=== PATIENT | female | born 1985 | race Two or more races ===

== ENCOUNTER 2025-01-08 16:29 | Inpatient (IN) | payer MEDICAID, SELFPAY ==
[2025-01-08] VITALS (52 sets, daily range): BP systolic 105–141; BP diastolic 54–90; PULSE 83–116; RESP 18–100; TEMP 36.8–38; O2SAT 71–100; BMI 44.4
[2025-01-08] MEDS: RINGERS LACTATED 1000 ML 1,000 ML 100 ML IV ×3 (16:40→18:35)
[2025-01-08 17:14] LABS: Basophils # (Auto) 0.0 Thou/mm3 (0.0-0.2); Basophils % (Auto) 0 % (0-2.5); Eosinophils # (Auto) 0.3 Thou/mm3 (0.0-0.5); Eosinophils % (Auto) 2 % (0-10); Hematocrit 37.2 % (36.0-46.0); Hemoglobin 12.1 g/dL (12.0-16.0); Immature Granulocytes Auto 0.06 Thou/mm3 (0.00-0.00); Lymphocytes # (Auto) 0.9 Thou/mm3 (1.0-4.8); Lymphocytes % (Auto) 9 % (10-50); Mean Corpuscular HGB Conc 32.5 g/dl (31.0-37.0); Mean Corpuscular Hemoglobin 27.6 pg (25.0-35.0); Mean Corpuscular Volume 85 fL (80-100); Monocytes # (Auto) 1.0 Thou/mm3 (0.0-0.8); Monocytes % (Auto) 10 % (0-12); Neutrophils # (Auto) 8.1 Thou/mm3 (1.8-7.7); Neutrophils % (Auto) 78 % (37-80); Nucleated Red Blood Cell # 0.00 Thou/mm3 (0.00-0.00); Nucleated Red Blood Cell % 0 /100 WBC (0); Platelet Count 309 Thou/mm3 (140-440); RDW Standard Deviation 44.2 fL (36.4-46.3); Red Blood Count 4.38 Miln/mm3 (4.00-5.20); White Blood Count 10.5 Thou/mm3 (3.6-11.0)
[2025-01-08 18:11] LABS: Syphilis Nonreactive (Nonreactive)
[2025-01-08] MEDS: BENZO/LANO/ALOE (Dermoplast) 60 GM CAN 1 SPRAY TOP (19:39)
[2025-01-08] MEDS: OXYTOCIN in NS 20 units 20 UNIT/1,000 ML BAG 125 UNIT IV (19:40)
[2025-01-08] MEDS: METHYLERGONOVINE INJ 0.2 MG/ML VIAL IM (19:45)
--- NOTE | 2025-01-08 20:30 | PD.LDDELS ---
Data ([facility]) Data Hx Section: No : 8 Term: 5 : 0 Livin Abortions: Spontaneous & Theraputic: 2 Delivery Data ([facility]) Labor Data Initiation of labor: Spontaneous Induction/Augmentation Agent: None ROM date: 01/08/25 ROM time: 19:32 Amniotic membrane rupture type: Artificial Amniotic fluid description: Clear Delivery Data Onset of labor date: 01/08/25 Onset of labor time: 11:00 Complete dilation date: 01/08/25 Complete dilation time: 19:37 delivery date: 01/08/25 delivery time: 19:39 Placenta delivery date: 01/08/25 Stage 1 total time: Labor - Stage 1 Duration 8 hours and 37 minutes Delivered by: Madelin Beavers Delivery nurse: Kavon Ferreira RN Neworn nurse: Brandy Shepard RN Financial Accounting Manager at delivery: No Support person(s) at delivery: fob Delivery Method Delivery method: Normal Vaginal Delivery Presentation: Vertex Anesthesia Type Anesthesia Type: Epidural Placenta Placenta delivery description: Spontaneous Cord blood sent to lab: Yes cord blood collection: Cord Blood Type Episiotomy Episiotomy description: None EBL Estimated blood loss (ml): 200 Umbilical Cord cord description: 3 Vessels Additional Procedures Valerie is a 39yo [id number] s/p uncomplicated at 40&3 after presenting in active labor, delivering at 1939 on 01/08/2025. On presentation, SCE was 6cm. She received an epidural and progressed quickly to 9cm at which point AROM was performed (clear), and then one contraction later she was C/C/0 with strong urge to push. With good maternal pushing efforts, infant's head delivered OA and restituted BABATUNDE. Left anterior shoulder delivered easily followed by posterior shoulder and corpus. Infant had spontaneous cry and was vigorous. Apgars 8/9. Infant placed on maternal abdomen where nose/mouth were suctioned and dried/stimulated. After approximately 1 minute, cord was clamped x2 and cut by FOB. Cord blood collected for typing. With fundal massage and cord traction, placenta delivered spontaneously and intact with 3 vessel centrally inserted cord. Bimanual massage performed and IV pitocin given per protocol with fundus then firm at u-2cm and hemostasis noted. Inspection of perineum and vagina revealed small 2nd degree midline perineal laceration which was repaired in routine fashion with 3-0 vicryl- total reapproximation and hemostasis achieved. Small trickle of blood, so sweep just within cervix/BELLA performed which retrieved a small amount of clot. 0.2mg IM methergine given with observed hemostasis after. All counts correct x2. Mom and infant were doing well when I left the room. Madelin Beavers MD Complications Complications: none [facility] Data ([facility]) [facility] Data 's gender: Female weight (gms): 3875 g Weight (pounds): 8 lbs and 8.7 ozs 1 minute: 8 5 minutes: 9
[2025-01-08] MEDS: ACETAMINOPHEN IVPB 1,000 MG/100 ML VIAL 250 MG IV (20:32)
--- NOTE | 2025-01-08 20:36 | PD.LDHP ---
Documentation for date of: 01/08/25 OB Labor/Induct. HPI History of Present Illness Chief complaint: painful regular ctx : 8 Para: 5 Term pregnancies: 5 pregnancies: 0 Living children: 5 History of Abortions: Spontaneous and Elective: 2 History of Vaginal deliveries: 5 History of sections: No History of : No Date of last menstrual period: 03/31/24 ABILIO: 01/05/25 Gestational Age (weeks): 40 Gestational Age (days): 3 Gestational age based on last menstrual period: 40 History of present illness: Patient presents for regular, painful ctx. No LOF. No vaginal bleeding. Normal movement. No fevers/chills. History of Present Adequate Care: Yes Narrative: Good PNC with Dr. Royal's office Hx of x5 at term, uncomplicated. Proven to 9lb. First 2003, last was 2021. AMA age 39, ASA 81mg PO QD Normal glucola NIPT negative Current BMI 44.5 Labs Maternal Blood Type: A Pos Labs: Positive: Rubella Titre, Negative: RPR, Hepatitis B, HIV, Chlamydia, Gonorrhea and Group Beta Strep and Unknown: Herpes Type 1, Herpes Type 2 and Covid-19 Narrative: NIPT negative 1hr glucola <90 Review of Systems Review of Systems Narrative Review of Systems: Review of Systems Systems Reviewed: All systems reviewed, normal except as documented Constitutional Constitutional: Denies body ache(s), Denies chills, Denies fever(s) and Denies headache(s) ENT Ears, Nose, Mouth, and Throat: Denies headache(s) and Denies vertigo Cardiovascular Cardiovascular: Denies chest pain, Denies palpitations, Denies dyspnea and Denies syncope Respiratory Respiratory: Denies cough, Denies dyspnea Gastrointestinal Gastrointestinal: Denies nausea and Denies vomiting Neurologic Neurologic: Denies convulsions, Denies headache(s), Denies other visual disturbances, Denies syncope and Denies vertigo Past Medical History Family History OTHER FAMILY HX: Family hx of T2DM Surgical History SURGICAL: Negative Section OTHER SURGICAL HX: Suction D&C x1 Social History SOCIAL: , good support. No tobacco/ETOH/illicit drugs Past Medical History Comments PMH COMMENT: Current BMI 44.5 Meds Home Medications and Allergies Home Medications ?Medication ?Instructions ?Recorded ?Confirmed ?Type vitamins with calcium 1 tab PO QDAY 01/08/25 01/08/25 History no.72-iron 27 mg-folic acid 1 mg tablet ( Plus (calcium carbonate)) Allergies Allergy/AdvReac Type Severity Reaction Status Date / Time No Known Allergies Allergy Verified 01/08/25 16:41 OB Exam Physical Exam Vital signs: Temp Pulse Resp BP Pulse Ox O2 Del Method 100.4 F 97 18 115/65 100 Room Air 01/08/25 20:20 01/08/25 20:35 01/08/25 16:37 01/08/25 20:35 01/08/25 19:50 01/08/25 16:37 Narrative: General: well developed, well nourished, no acute distress, conversant Cardiac: normal heart rate Lungs: breathing without distress Abdomen: soft, gravid, non-tender, no rebound or guarding Extremities: trace edema BLE Detailed Labor and Delivery Exam Dilation (cm): 6 Effacement (%): 50 Cervix position: mid station: -3 Consistency: soft Presentation: Vertex Membranes: intact Baseline heart rate: 145 monitor accelerations: 15x15 monitor decelerations: Variable terminal worker variability: Moderate (11-25) Contraction frequency (min): q3-4min OB Results Labs 01/09/25 06:15 Labs: Short CBC 01/08/25 Range/Units 16:55 WBC 10.5 (3.6-11.0) Thou/mm3 Hgb 12.1 (12.0-16.0) g/dL Hct 37.2 (36.0-46.0) % Plt Count 309 (140-440) Thou/mm3 OB Assessment & Plan Assessment and Plan (1) Active labor at term: Status: Acute Assessment and plan: Valerie is a 39yo with SIUP at 40&3wk presenting in active labor. Regular/painful contractions, SCE: 6/50/-3. Vitals wnl, benign exam. FHRT Cat II for variable decels, mod delmer, +accels. PMhx/ complicated by: Good PNC with Dr. Royal's office (available records reviewed) Hx of x5 at term, uncomplicated. Proven to 9lb. First 2003, last was 2022. AMA age 39, ASA 81mg PO QD Normal glucola NIPT negative Current BMI 44.5 Plan: -Admit to L&D -Establish IV, routine labs -CEFM -Clear liquid diet -Verification Rep/consent re: -GBS status: negative -Anticipate -Safe to proceed (2) Grand multipara in labor: Status: Acute (3) Obesity affecting : Status: Acute (3) Obesity affecting Qualifiers: Trimester: third trimester Obesity type affecting : unspecified obesity Qualified Code(s): O99.213 - Obesity complicating , third trimester
[2025-01-08 23:53] LABS: Amphetamine/Metham Scrn,Ur OB Negative (Negative); Benzoylecgonine Screen, Ur OB Negative (Negative); Opiate Screen,Urine OB Negative (Negative); THC Screen,Urine OB Negative (Negative)
[2025-01-09 00:47] VITALS: BP 98/61; PULSE 90; RESP 18; TEMP 36.9; O2SAT 96
[2025-01-09] MEDS: HYDROcodone/APAP 5/325 TABLET 1 TAB PO (04:33)
[2025-01-09 04:45] VITALS: BP 98/65; PULSE 62; RESP 18; TEMP 36.6; O2SAT 96
[2025-01-09 06:59] LABS: Basophils # (Auto) 0.0 Thou/mm3 (0.0-0.2); Basophils % (Auto) 0 % (0-2.5); Eosinophils # (Auto) 0.2 Thou/mm3 (0.0-0.5); Eosinophils % (Auto) 2 % (0-10); Hematocrit 33.1 % (36.0-46.0); Hemoglobin 10.9 g/dL (12.0-16.0); Immature Granulocytes Auto 0.06 Thou/mm3 (0.00-0.00); Lymphocytes # (Auto) 1.2 Thou/mm3 (1.0-4.8); Lymphocytes % (Auto) 13 % (10-50); Mean Corpuscular HGB Conc 32.9 g/dl (31.0-37.0); Mean Corpuscular Hemoglobin 28.4 pg (25.0-35.0); Mean Corpuscular Volume 86 fL (80-100); Monocytes # (Auto) 1.2 Thou/mm3 (0.0-0.8); Monocytes % (Auto) 12 % (0-12); Neutrophils # (Auto) 7.2 Thou/mm3 (1.8-7.7); Neutrophils % (Auto) 73 % (37-80); Nucleated Red Blood Cell # 0.00 Thou/mm3 (0.00-0.00); Nucleated Red Blood Cell % 0 /100 WBC (0); Platelet Count 265 Thou/mm3 (140-440); RDW Standard Deviation 45.1 fL (36.4-46.3); Red Blood Count 3.84 Miln/mm3 (4.00-5.20); White Blood Count 9.9 Thou/mm3 (3.6-11.0)
[2025-01-09 08:00] VITALS: BP 100/67; PULSE 73; RESP 18; TEMP 36.6; O2SAT 96
[2025-01-09] MEDS: IBUPROFEN TAB 400 MG TABLET 800 MG PO ×2 (08:42→18:27)
[2025-01-09] MEDS: DOCUSATE SOD 100 MG CAPSULE PO (08:42)
[2025-01-09] MEDS: PRENATAL VITAMIN/FE FUM/FA TABLET 1 TAB PO (08:42)
--- NOTE | 2025-01-09 10:32 | PC.CC ---
MODULAR SET CREW MEMBER, Rosa, met with patient [id number] to do initial assessment due to being late to care at 20 weeks of gestation. CUSTOMS AND BORDER PROTECTION INSPECTOR introduced herself, role in the agency, reason for visit, and discussed limits of confidentiality. Patient appeared alert and oriented to self, time, place, and situation. Patient appears stated age. Patient made good eye contact. Patient?s attitude appeared pleasant and cooperative. Patient?s behavior appeared ordinary. Patient?s mood appears ordinary. No signs of delusions or hallucinations. This is 39-year-old, monolingual, single, female who presented to the hospital to deliver her daughter. Patient confirmed her address and phone number. Patient resides in a home with her , Gavino and 5 children (ages: 21 y/o, 15 y/o, 12 y/o, 5 y/o, and 3 y/o). Patient reported being independent with all ADLs, no DME use. Prior to admission, patient reported being unemployed. She financially support herself and children with her 's income and WIC. Patient denied any history or current issues with CWS, substance use, or domestic violence. Patient denies any history or current mental health illnesses. Patient reported that with her last two pregnancies, patient believes that she might have suffered from Post Depression; however, it was never diagnosed. Patient reported that her symptoms consisted of feeling sad and being tearful. She denies receiving any outpatient mental health services. Patient denies any history of suicide attempts, 5150 holds. Patient denied any HI, SI. Patient reported that her mother, Maryam will be there to assist her. Patient reported that she found out about being early on her . However, she did not have have medical insurance and had to wait a few months to obtain Med[facility]. Patient reported that she attempted to pay for a few sessions out of pocket; however, it was a financial stressor. Once Medi-Mohamud was obtained, patient went to all her OBGYN appointments. SW provided psychoeducation regarding baby blues and Post- Depression, as well as counseling groups at [facility]. SW provided community resources: Warm Line and Crisis Line.
[2025-01-09 12:00] VITALS: BP 96/65; PULSE 66; RESP 17; TEMP 36.7; O2SAT 97
[2025-01-09 16:00] VITALS: BP 100/70; PULSE 70; RESP 17; TEMP 36.7; O2SAT 97
--- NOTE | 2025-01-09 16:00 | PD.LDDS ---
DS: Providers Provider Date of admission: 01/08/25 19:39 Primary care physician: Physician No Primary/Family Admitting Provider: Madelin Beavers MD Attending Provider on Admission: Madelin Beavers MD Consults: 01/08/25 20:28 Referral Routine Comment: Attending Provider on DC: Madelin Beavers MD Discharging Provider: Madelin Beavers MD DS: Diagnosis Discharge Diagnosis (1) Grand multipara in labor: Status: Acute (2) care following vaginal delivery: Status: Acute (3) Active labor at term: Status: Acute Problem List Completed Was Problem List Reviewed/Reconciled?: Yes Summary/Hosp Course Brief History: Valerie is a 39yo [id number] s/p uncomplicated at 40wk after presenting in active labor, delivering on 01/08. She has had an uncomplicated course, meeting all milestones and feels ready for discharge home. She is ambulating without lightheadedness, tolerating regular diet no n/v, spontaneously voiding without issue. She has no chest pain or shortness of breath. No fevers or chills. Minimal, appropriate discomfort. Vitals normal, benign exam. Hemodynamically stable with no evidence of infection. PP Hgb 10.9. Peripartum Data Delivery Method: Normal Vaginal Delivery Episiotomy Description: None Status at Discharge Functional status at discharge: independent ambulation Overall status at discharge: patient is back to baseline Time Spent with Patient Time attestation: Total time spent providing and/or coordinating discharge services: Exam Vital Signs Temp Pulse Resp BP Pulse Ox O2 Del Method 98.0 F 66 17 96/65 97 Room Air 01/09/25 12:00 01/09/25 12:00 01/09/25 12:00 01/09/25 12:00 01/09/25 12:00 01/09/25 12:00 Narrative Exam General: well developed, well nourished, no acute distress, conversant Cardiac: normal heart rate Lungs: breathing without distress Abdomen: soft, post-gravid, non-tender, no rebound or guarding, Fundus firm at u-3cm. Extremities: no pain with palpation of calves, trace edema of BLE Discharge Plan Plan Patient Disposition: HOME (Self Care) Patient condition on transfer: Stable Prescriptions/Referrals Prescriptions/Med Rec: New docusate sodium 100 mg Capsule 100 mg PO BID 10 Days Qty: 20 0RF ibuprofen 600 mg tablet 600 mg PO Q6H PRN (Reason: See Comments) 10 Days Qty: 20 0RF Continued Plus (calcium carb) 27 mg iron- 1 mg tablet 1 tab PO QDAY Patient Comments: Take 1 tablet by mouth once a day Referrals: No Primary/Family,Physician [Primary Care Provider] - Patient/Caregiver Discharge Instructions Discharge Activity: activity as tolerated and other Other Discharge Activity Instructions:: vaginal rest and no heavy lifting more than 10 pounds for 6 weeks Other Discharge Diet Instructions: regular Education Materials: After a Vaginal Print Language: Persian Activity Restrictions/Additional Instructions: follow up with Dr. Royal's office in 2 to 4 weeks for visit, call to schedule Stand Alone Forms: [employer] Info., Patient Portal Info Letter Discharge Order Discharge Orders: Discharge (Routine); Ordered 01/09/25 Ordered By: Madelin Beavers Planned Discharge Date 01/09/25
[2025-01-09 19:48] VITALS: BP 98/63; PULSE 67; RESP 16; TEMP 36.6; O2SAT 96
== END 2025-01-09 20:29 | disposition home or self-care (01) | DRG 560 ==
LOC: S4NX 01-11 05:44 → S4SX 01-11 05:44
PROVIDERS: Admitting Provider Obstetrics & Gynecology; Visit Provider Obstetrics & Gynecology
DX: O48.0 Post-term pregnancy (principal); O76 Abnormality in fetal heart rate and rhythm complicating labor and delivery; O99.214 Obesity complicating childbirth; Z37.0 Single live birth; Z3A.40 40 weeks gestation of pregnancy; O70.1 Second degree perineal laceration during delivery
CPT/HCPCS: 36415; 59025; 80307; 85025; 86780; 86850; 86900; 86901; J0131; J2210; J2590; J2795; J3010; J7120; A9270

== ENCOUNTER 2025-04-04 16:59 | Emergency (ER) | payer MEDICAID, SELFPAY ==
[2025-04-04 17:30] VITALS: BP 119/79; PULSE 109; RESP 19; TEMP 38.1; O2SAT 95; BMI 29.9
--- NOTE | 2025-04-04 17:53 | PD.EDRME ---
Rapid Medical Screening Exam RME Arrival date/time: 04/04/25 16:59 This is a 39-year-old female that comes into the emergency room with complaints of back pain fever chills. Patient states she is currently . Patient delivered baby in December. Patient states she is currently breast-feeding. Patient is also complaining of abdominal pain. Patient does not think she is . I have greeted and performed a focused initial assessment of this patient. Initial appropriate labs ordered at this time. A comprehensive ED assessment and evaluation of the patient and analysis of all test and completion of medical decision making process will be conducted by additional ED provider. Chief Complaint: Back Pain/Injury Time Seen by Provider: 04/04/25 17:28 Vital signs: Vital Signs Temperature 100.5 F H 04/04/25 17:30 Pulse Rate 109 H 04/04/25 17:30 Respiratory Rate 19 04/04/25 17:30 Blood Pressure 119/79 04/04/25 17:30 Pulse Oximetry (%) 95 04/04/25 17:30 Oxygen Delivery Method Room Air 04/04/25 17:30 Exam: Alert and oriented, breathing unlabored, diffuse lower back pain Clinical Impression: Back pain
[2025-04-04 18:14] VITALS: TEMP 38.1
[2025-04-04] MEDS: ACETAMINOPHEN 500 MG TABLET 1000 MG PO (18:14)
[2025-04-04 18:19] LABS: Collection Type, Urine Voided
[2025-04-04 18:30] LABS: Bilirubin,Urine 2+ (Negative); Blood,Urine 1+ (Negative); Clarity,Urine Clear (Clear/Hazy); Color,Urine Drk-Yellow (Lt Yel-Yel); Glucose, Urine Negative (Negative); Ketones,Urine Negative (Negative); Leukocyte Esterase,Urine Positive (Negative); Nitrite,Urine Positive (Negative); PH,Urine 6.0 (5.0-7.0); Protein,Urine Trace (Neg - Trace); RBC,Urine 12 /hpf (0-3); Specific Gravity,Urine 1.018 (1.001-1.035); Squamous Epithelial Cell,Urine 5 /hpf (0-5); Urobilinogen,Urine 4.0 mg/dL (0.0-1.0); WBC,Urine 33 /hpf (0-5)
[2025-04-04 18:38] LABS: Culture Indicated,Urine Yes
[2025-04-04 18:41] LABS: HCG Qualitative,Urine Negative
[2025-04-04 18:55] LABS: Basophils # (Auto) 0.0 Thou/mm3 (0.0-0.2); Basophils % (Auto) 0 % (0-2.5); Eosinophils # (Auto) 0.0 Thou/mm3 (0.0-0.5); Eosinophils % (Auto) 0 % (0-10); Hematocrit 37.8 % (36.0-46.0); Hemoglobin 13.0 g/dL (12.0-16.0); Immature Granulocytes Auto 0.04 Thou/mm3 (0.00-0.00); Lymphocytes # (Auto) 1.2 Thou/mm3 (1.0-4.8); Lymphocytes % (Auto) 10 % (10-50); Mean Corpuscular HGB Conc 34.4 g/dl (31.0-37.0); Mean Corpuscular Hemoglobin 30.0 pg (25.0-35.0); Mean Corpuscular Volume 87 fL (80-100); Monocytes # (Auto) 1.3 Thou/mm3 (0.0-0.8); Monocytes % (Auto) 10 % (0-12); Neutrophils # (Auto) 9.9 Thou/mm3 (1.8-7.7); Neutrophils % (Auto) 79 % (37-80); Nucleated Red Blood Cell # 0.00 Thou/mm3 (0.00-0.00); Nucleated Red Blood Cell % 0 /100 WBC (0); Platelet Count 287 Thou/mm3 (140-440); RDW Standard Deviation 46.5 fL (36.4-46.3); Red Blood Count 4.33 Miln/mm3 (4.00-5.20); White Blood Count 12.5 Thou/mm3 (3.6-11.0)
[2025-04-04 19:14] VITALS: TEMP 37.7
[2025-04-04 19:15] LABS: Alanine Aminotransferase 32 U/L (10-49); Albumin, Serum 4.8 gm/dL (3.5-5.0); Albumin/Globulin Ratio 1.7 (1.2-2.2); Alkaline Phosphatase 99 U/L (46-116); Anion Gap 10 (7-16); Aspartate Amino Transferase 36 U/L (0-34); BUN/Creatinine Ratio 13 Ratio (12-20); Bilirubin,Total 0.6 mg/dL (0.3-1.2); Blood Urea Nitrogen 10 mg/dL (9-23); Calcium 10.0 mg/dL (8.3-10.6); Calcium (Corrected) 10.0 mg/dL (8.5-10.1); Carbon Dioxide 23.7 mMol/L (20.0-31.0); Chloride 105 mMol/L (98-107); Creatinine (Component) 0.8 mg/dL (0.6-1.3); Estimated Creatinine Clearance 96.1 mL/min (>60); Globulin 2.8 gm/dL (2.3-3.5); Glucose 128 mg/dL (74-106); Lipase 29 U/L (12-53); Osmolality,Calculated 278 (275-295); Potassium 3.7 mMol/L (3.4-5.1); Sodium 139 mMol/L (136-145); Total Protein 7.6 gm/dL (5.7-8.2); eGFR > 60 See Note
[2025-04-04 19:21] VITALS: BP 101/61; PULSE 100; RESP 16; TEMP 37.7; O2SAT 95
--- NOTE | 2025-04-04 20:02 | PD.EDADULT ---
ED General RME/HPI General Chief complaint: Back Pain/Injury Stated complaint: FEVER, RIGHT FLANK PAIN, QUIÑONES Time Seen by Provider: 04/04/25 17:28 Arrival date/time: 04/04/25 16:59 CC: Painful urination HPI 10 days ago patient started have painful urination, went and saw her doctor who ordered Keflex. The patient is currently breast-feeding. She is 3 months . Patient began to feel better and decided not to take the antibiotics until the pain returned more significantly in the past 2 days. Patient is now complaining of mild low center abdominal and low back pain. Patient denies fever chills shortness of breath difficulty breathing headache nausea vomiting or diarrhea. Low-grade temperature of 100.5. No other complaints at this time. RME / HPI RME / HPI narrative: 04/04/25 16:59 This is a 39-year-old female that comes into the emergency room with complaints of back pain fever chills. Patient states she is currently . Patient delivered baby in December. Patient states she is currently breast-feeding. Patient is also complaining of abdominal pain. Patient does not think she is . I have greeted and performed a focused initial assessment of this patient. Initial appropriate labs ordered at this time. A comprehensive ED assessment and evaluation of the patient and analysis of all test and completion of medical decision making process will be conducted by additional ED provider. Exam: Alert and oriented, breathing unlabored, diffuse lower back pain Impression: Back pain Related Data Home Medications ?Medication ?Instructions ?Recorded ?Confirmed vitamins with calcium 1 tab PO QDAY 01/08/25 01/08/25 no.72-iron 27 mg-folic acid 1 mg tablet ( Plus (calcium carbonate)) Allergies Allergy/AdvReac Type Severity Reaction Status Date / Time No Known Allergies Allergy Verified 01/08/25 16:41 Review of Systems Review of Systems Narrative Review of Systems: GEN: No fever, no chills, no weight loss EYES: No discharge, no visual changes, no pain HEENT: No ear pain, no congestion, no sore throat PULM: No shortness of breath, no cough, no congestion CV: No chest pain, no dyspnea on exertion, no palpitations GI: No nausea, no vomiting, no diarrhea, no pain, no constipation : No frequency, no urgency, + dysuria MUSC/SKEL: No joint pain, no back pain SKIN: No rash PSYCH: No hallucinations, no depression HEME/LYMPH: No easy bleeding or bruising tendencies NEURO: No weakness, no headache Past Medical History Past Medical History NEUROLOGIC: Negative Neurological Disorders CARDIAC: Negative Cardiac Disorders or Congestive Heart Failure RESPIRATORY: Positive Asthma (as a child) and Tuberculosis; Negative Chronic Obstructive Pulmonary Disease (COPD) GASTROINTESTINAL: Negative Gastrointestinal Disorders, Hepatitis or Colorectal Cancer GENITOURINARY: Negative Genitourinary Disorders, Renal Disease or Prostate Cancer REPRODUCTIVE: Positive Pelvic Inflammatory Disease and Previous Pregnancies; Negative Breast Cancer, Endometriosis, Testicular Cancer or Uterine Prolapse MUSCULOSKELETAL: Negative Musculoskeletal Disorders or Bone Cancer ENDOCRINE: Negative Endocrine Disorders, Diabetes Mellitus Type 1, Diabetes Mellitus Type 2 or [place]'s Disease HEMATOLOGIC: Negative Blood Disorders PSYCHO/SOCIAL: Positive Depression OTHER HISTORY: Negative Hospitalization, Autoimmune Disease, Down Syndrome, Developmental Delay, Shingles, Falls, Blood Transfusions, Blood Transfusion Reaction, Anesthesia Reactions, Organ Transplant, Chemotherapy, Radiation Therapy, Hyperbaric Therapy, MRSA, VRSA, Vancomycin-Resistant Enterococci, Human Immunodeficiency Virus (HIV), Chicken Pox, Measles, Mumps, Rubella (Vietnamese Measles), Pertussis, Clostridium Difficile, Cancer, Breast Cancer, Cervical Cancer, Colorectal Cancer, Lung Cancer, Ovarian Cancer, Prostate Cancer or Testicular Cancer Family History FAMILY HISTORY: Negative Family Psychiatric Problems, Family Respiratory Disorders, Family Cardiac Disorders, Family Gastrointestinal Problems, Family Cancer, Family Surgery or Family Anesthesia Reaction Surgical History SURGICAL: Negative Cardiac Surgery, Endocrine Surgery, Ear Surgery, Abdominal Surgery, Nephrectomy, Joint Replacement, Neurologic Surgery, Lumpectomy, Section or Organ Transplant Social History SMOKING STATUS: Never smoker SECOND HAND EXPOSURE: No OCCUPATION: mom ED Exam Narrative Physical exam: [General: Not in any acute distress Head normocephalic HEENT: Within acceptable limits Neck is supple nontender Chest equal chest rise nontender to palpation Respiratory: Clear to auscultation no wheezes crackles or rubs CV: Rate rhythm is regular no murmurs rubs or clicks Abdomen is distended secondary to body habitus soft nontender no masses positive bowel sounds all 4 quadrants Back: No CVA tenderness no spinous process tenderness from cervical spine thoracic and lumbar spine Skin: Intact no petechiae rash induration ulceration or crepitus Extremities: Moving all extremity against resistance cap refill less than 2 seconds neurosensory intact Neuro: Awake alert oriented x3 Glascow coma 15 no focal deficits] Course Course Course Narrative: Although other appears to not be any bacteria, the patient has already started her antibiotics a day ago that were prescribed by her PCP. This time we will administer a gram of Rocephin and discharged with her to continue on the cephalexin, and to pump and dump her breastmilk for at least 3 days after finishing the antibiotics. Patient is in agreement with this plan. Quality Measures none Orders Category Date Time Status CBC Stat Lab 04/04/25 18:37 Completed Comprehensive Metabolic Panel Stat Lab 04/04/25 18:37 Completed HCG Qualitative,Urine Stat Lab 04/04/25 17:55 Completed Lipase Stat Lab 04/04/25 18:37 Completed Urinalysis, C/S if Indicated Stat Lab 04/04/25 17:55 Completed Urine Culture Stat Lab 04/04/25 17:55 Received Acetaminophen Tab [Tylenol ES Tab] Med 04/04/25 17:54 Discontinued 1,000 mg PO X1 ONE cefTRIAXone [Rocephin] 1,000 mg Med 04/04/25 20:01 Ordered Lidocaine 1% 20 ml [Xylocaine 1% 20 ML] 2.1 ml IM X1 Vital Signs Vital signs: Vital Signs Temperature 100.5 F H 04/04/25 17:30 Pulse Rate 109 H 04/04/25 17:30 Respiratory Rate 19 04/04/25 17:30 Blood Pressure 119/79 04/04/25 17:30 Pulse Oximetry (%) 95 04/04/25 17:30 Oxygen Delivery Method Room Air 04/04/25 17:30 Discharge Plan Plan Patient Disposition: HOME (Self Care) Patient condition on transfer: Stable Prescriptions/Referrals Prescriptions/Med Rec: No Action Plus (calcium carb) 27 mg iron- 1 mg tablet 1 tab PO QDAY Patient Comments: Take 1 tablet by mouth once a day Referrals: Rahul Plascencia MD [Primary Care Provider, Family Practice] - In 1 week Problem List Clinical Impression: UTI (urinary tract infection) Patient/Caregiver Discharge Instructions Education Materials: ED CYSTITIS Female Adult Additional Instructions: Take the medication as prescribed until completely gone, pump and dump your breastmilk for at least 72 hours after the last dose of your antibiotics. If there is any worsening of symptoms while taking the antibiotics return to the emergency room for further evaluation. Print Language: Georgian Stand Alone Forms: [email or web address] Info., Work/School Release, Patient Portal Info Letter ANAMIKA/JANE Supervising Physician JENNIFER Supervising Physician: Taran Howard ENP MDM Clinical Information Provided by: patient and spouse Medical Records reviewed [facility] Meds/Rx considered, not ordered None Labs/Rad/Tests considered, not ordered None Chronic Illness/Social Conditions Explain: Patient is currently breast-feeding EKG EKG not done Labs Labs: interpreted by wa Lab(s) Interpretation(s): CBC shows a mild leukocytosis of 12.5 no anemia thrombocytopenia CMP shows no significant electrolyte imbalances renal impairment transaminitis or T. bili elevation Urine shows leukocyte esterase and nitrite positive RBCs at 12 WBCs at 32 bacteria is absent Urine is negative Imaging Imaging interpretation: none Medication Administration(s) none Medication Administration History Ceftriaxone Sodium 1,000 mg/ (Lidocaine HCl 2.1 ml) 0 mg IM X1 ONE Stop: 04/04/25 20:02 Discontinued Medications Acetaminophen (Acetaminophen 500 Mg Tablet) 1,000 mg PO X1 ONE Stop: 04/04/25 17:55 Last Admin: 04/04/25 18:14 Dose: 1,000 mg Documented By: KEENA Diagnosis Differential Diagnosis ED Complaint MDM: UTI pyelonephritis cystitis
[2025-04-04] MEDS: cefTRIAXone 1,000 MG, LIDOCAINE 1% 20 ML 2.1 ML IM (20:18)
== END 2025-04-04 20:29 | disposition home or self-care (01) ==
PROVIDERS: Nurse Practitioner Family; Emergency Provider Emergency Medicine; PCP Family Medicine
DX: S39.92XA Unspecified injury of lower back, initial encounter (principal); N30.90 Cystitis, unspecified without hematuria; X50.0XXA Overexertion from strenuous movement or load, initial encounter
CPT/HCPCS: 36415; 80053; 81001; 81025; 83690; 85025; 87086; 96372; 99283; J0696; J3490; A9270